=== PATIENT | male | born 1970 | race Caucasian/White ===

== ENCOUNTER 2017-06-27 11:28 | Inpatient (IN) | payer OTHER ==
[2017-06-27 12:48] VITALS: BMI 31.8
--- NOTE | 2017-06-27 13:49 | HP ---
COWS - Scale Resting Pulse: 1= [place] 81-100 Sweatin=Flushed/Facial Moisture Restless Observation: 3= Extraneous Movement Pupil Size: 2= Moderately Dilated Bone or Joint Aches: 2= Severe Diffuse Aches Runny Nose/ Eye Tearin= Runny Nose/Eyes GI Upset > 30mins: 3= Vomiting/Diarrhea Tremor Observation: 2= Slight Tremor Visible Yawning Observation: 2= >3x During Session Anxiety or Irritability: 2=Irritable/Anxious Goose Flesh Skin: 0=Smooth Skin COWS Score: 21 CIWA Score - CIWA Score Nausea/Vomitin Muscle Tremors: 3 Anxiety: 3 Agitation: 3 Paroxysmal Sweats: 2 Orientation: 0-Oriented Tacttile Disturbances: 2-Mild Itch/Numbness/Burn Auditory Disturbances: 2-Mild Harshness/Frighten Visual Disturbances: 2-Mild Sensitivity Headache: 1-Very Mild CIWA-Ar Total Score: 21 Admission ROS BHS - HPI Chief Complaint: i need help to stop using heroin and alcohol Allergies/Adverse Reactions: Allergies Allergy/AdvReac Type Severity Reaction Status Date / Time No Known Allergies Allergy Verified 06/27/17 12:59 History of Present Illness: this 47 years old male with heroin and alcohol dependence,seeking detox,last treatment [facility] 03/05 multiple admissions in the past but relapsing multiple medical problem hiv since 2014,hepatitis c treated,nicotine dependence, schizoaffective disorder,weight loss, abscess of both forearm no significant period of sobriety - Ebola screening Have you traveled outside of the country in the last 21 days: No Have you had contact with anyone from an Ebola affected area: No Have you been sick,other than usual withdrawal symptoms: No Do you have a fever: No - Review of Systems Constitutional: Chills, Loss of Appetite, Malaise, Night Sweats, Changes in sleep, Weakness, Unintentional Wgt. Loss EENT: reports: Tearing, Nose Congestion Respiratory: reports: No Symptoms reported Cardiac: reports: Palpitations GI: reports: Diarrhea, Nausea, Vomiting, Abdominal cramping : reports: No Symptoms Reported Integumentary: reports: Dryness, Erythema Neuro: reports: Headache, Tremors Endocrine: reports: No Symptoms Reported Hematology: reports: No Symptoms Reported, Other (hiv) Psychiatric: reports: No Sypmtoms Reported, Judgement Intact, Mood/Affect Appropiate, Orientated x3 (schizoaffetive disorder), Anxious, Depressed Patient History - Patient Medical History Hx Anemia: No Hx Asthma: No Hx Chronic Obstructive Pulmonary Disease (COPD): No Hx Cancer: No Hx Cardiac Disorders: No Hx Congestive Heart Failure: No Hx Hypertension: Yes Hx Hypercholesterolemia: No Hx Pacemaker: No HX Cerebrovascular Accident: No Hx Seizures: No Hx Dementia: No Hx Diabetes: No Hx Gastrointestinal Disorders: No Hx Liver Disease: Yes (LIVER CIRRHOSIS ON BIOPSY) Hx Genitourinary Disorders: No Hx Sexually Transmitted Disorders: No Hx Renal Disease (ESRD): No Hx Thyroid Disease: No Hx Human Immunodeficiency Virus (HIV): No (positive since 2014) Hx Hepatitis C: Yes (treated) Hx Depression: No Hx Suicide Attempt: No Hx Bipolar Disorder: Yes Hx Schizophrenia: Yes (schizoeffective) Other Medical History: no suicidal,no homicidal - Patient Surgical History Past Surgical History: Yes Hx Neurologic Surgery: No Hx Cataract Extraction: No Hx Cardiac Surgery: No Hx Lung Surgery: No Hx Breast Surgery: No Hx Breast Biopsy: No Hx Abdominal Surgery: No Hx Appendectomy: No Hx Cholecystectomy: No Hx Genitourinary Surgery: No Hx Section: No Hx Orthopedic Surgery: No Other Surgical History: bilateral inguinal hernia repair in 2012 Anesthesia Reaction: No - PPD History Previous Implant?: Yes Documented Results: Positive w/o proof Implanted On Prior R Admission?: No PPD to be Administered?: No - Smoking Cessation Smoking history: Current every day smoker Have you smoked in the past 12 months: Yes Aproximately how many cigarettes per day: 15 Cigars Per Day: 0 Hx Chewing Tobacco Use: No Initiated information on smoking cessation: Yes 'Breaking Loose' booklet given: 06/27/17 - Substance & Tx. History Hx Alcohol Use: Yes Hx Substance Use: Yes Substance Use Type: Alcohol, Cocaine, Heroin - Substances Abused Heroin Route: Injection Frequency: Daily Amount used: 20 bags Age of first use: 9 Date of Last Use: 06/27/17 Cocaine Route: Injection Frequency: Daily Amount used: 15 bags Age of first use: 9 Date of Last Use: 06/27/17 Alcohol Route: Oral Frequency: Daily Amount used: vodka(2 pints) Age of first use: 8 Date of Last Use: 06/27/17 Family Disease History - Family Disease History Family History: Denies Admission Physical Exam [facility] - Vital Signs Vital Signs: Vital Signs - 24 hr 06/27/17 12:44 Temperature 96.8 F L Pulse Rate 81 Respiratory 20 Rate Blood Pressure 126/70 - Physical General Appearance: Yes: Moderate Distress, Tremorous, Irritable, Sweating, Anxious HEENTM: Yes: Normal ENT Inspection, ADITI, Pharynx Normal, Nasal Congestion Respiratory: Yes: Lungs Clear, Normal Breath Sounds, No Respiratory Distress Neck: Yes: Within Normal Limits, Supple, Trachea in good position Breast: Yes: Within Normal Limits Cardiology: Yes: Within Normal Limits, Regular Rhythm, Regular Rate, S1, S2 Abdominal: Yes: Within Normal Limits, Normal Bowel Sounds, Non Tender, Flat, Soft Genitourinary: Yes: Within Normal Limits Back: Yes: Muscle Spasm Musculoskeletal: Yes: full range of Motion, Back pain, Muscle Pain Extremities: Yes: Tremors, Inflammation (multiple area of erythema both forearm abscess of left forearm) Integumentary: Yes: Dry Lymphatic: Yes: Within Normal Limits - Diagnostic (1) Opioid dependence with withdrawal Current Visit: Yes Status: Acute (2) Alcohol dependence with uncomplicated withdrawal Current Visit: Yes Status: Acute (3) Cellulitis and abscess Current Visit: Yes Status: Acute (4) Cocaine dependence Current Visit: Yes Status: Acute Qualifiers: Substance use status: uncomplicated Qualified Code(s): F14.20 - Cocaine dependence, uncomplicated (5) Nicotine dependence Current Visit: Yes Status: Acute Qualifiers: Nicotine product type: cigarettes Substance use status: uncomplicated Qualified Code(s): F17.210 - Nicotine dependence, cigarettes, uncomplicated (6) Hepatitis C Current Visit: Yes Status: Chronic (7) Hypertension Current Visit: Yes Status: Chronic Qualifiers: Hypertension type: essential hypertension Qualified Code(s): I10 - Essential (primary) hypertension (8) Schizoaffective disorder Current Visit: No Status: Suspected Qualifiers: Schizoaffective disorder type: unspecified Qualified Code(s): F25.9 - Schizoaffective disorder, unspecified (9) Weight loss Current Visit: Yes Status: Acute Cleared for Admission [facility] - Detox or Rehab [facility] Level of Care: Medically Managed Detox Regimen/Protocol: Methadone/Librium [facility] Breath Alcohol Content Breath Alcohol Content: 0.008 Urine Drug Screen - Results Drug Screen Negative: No Urine Drug Screen Results: SHARAN-Cocaine, OPI-Opiates, MET-Methamphetamine, BZO- Benzodiazepines
[2017-06-27] MEDS ORDERED: chlordiazePOXIDE HCL 25 MG CAPSULE PO PRN (13:57)
[2017-06-27] MEDS ORDERED: MAGNESIUM CITRATE 300 ML BOTTLE PO PRN (13:58)
[2017-06-27] MEDS ORDERED: ACETAMINOPHEN 325 MG TABLET (FP) PO PRN (13:58)
[2017-06-27] MEDS ORDERED: MENTHOL/PHENOL 1 EACH UD MM PRN (13:58)
[2017-06-27] MEDS ORDERED: IBUPROFEN 400 MG TABLET (FP) PO PRN (13:58)
[2017-06-27] MEDS ORDERED: MAGNESIUM HYDROX 2400MG/30ML ORAL SUSPENSION 30 ML CUP PO PRN (13:58)
[2017-06-27] MEDS ORDERED: NICOTINE POLACRILEX 2 MG GUM BUC PRN (13:58)
[2017-06-27] MEDS ORDERED: hydrOXYzine PAMOATE 25 MG CAPSULE (FP) PO PRN (13:58)
[2017-06-27] MEDS ORDERED: P-EPHED 60MG/TRIPROLIDI 2.5MG TABLET PO PRN (13:58)
[2017-06-27] MEDS ORDERED: guaiFENesin/D-METHORPHAN HB 10 ML UNIT-DOSE CUPS PO PRN (13:58)
[2017-06-27] MEDS ORDERED: diphenhydrAMINE HCL 50 MG CAPSULE PO PRN (13:58)
[2017-06-27] MEDS ORDERED: MAG HYDROX/AL HYDROX/SIMETH 30 ML UNIT-DOSE CUP PO PRN (13:58)
[2017-06-27] MEDS ORDERED: LOPERAMIDE HCL 2 MG CAPSULE PO PRN (13:58)
[2017-06-27] MEDS ORDERED: CYCLOBENZAPRINE HCL 10 MG TABLET (FP) PO PRN (14:02)
[2017-06-27] MEDS ORDERED: SULFAMETHOXAZOLE/TRIMETHOPRIM 800MG/160MG D.S. TABLET PO ONE (14:04)
[2017-06-27] MEDS ORDERED: METHADONE HCL 10 MG TABLET (FOR DETOX USE ONLY) PO ONE ×2 (14:08→23:00)
[2017-06-27] MEDS: NICOTINE 21 MG/24 HOURS TOPICAL PATCH TD SCH (15:12)
--- NOTE | 2017-06-27 16:55 | CONSULT ---
[facility] Psychiatric Consult - Data Date of interview: 06/27/17 Admission source: [facility] Identifying data: Readmission to [facility] for this 47 y/o male seeking detox treatment on for alcohol and heroin dependence.Patient is single without children,domiciled,unemployed and supported on SSI benefits. Substance Abuse History: Discussed in this session.Mr Chapa confirms this report. Smoking Cessation. Smoking history: Current every day smoker. Have you smoked in the past 12 months: Yes. Aproximately how many cigarettes per day : 15. Cigars Per Day: 0. Hx Chewing Tobacco Use: No. Initiated information on smoking cessation: Yes. 'Breaking Loose' booklet given: 06/27/17. - Substance & Tx. History. Hx Alcohol Use: Yes. Hx Substance Use: Yes. Substance Use Type: Alcohol, Cocaine, Heroin. - Substances Abused. Heroin. Route: Injection. Frequency: Daily. Amount used: 20 bags. Age of first use : 9. Date of Last Use: 06/27/17. Cocaine. Route: Injection. Frequency: Daily. Amount used: 15 bags. Age of first use: 9. Date of Last Use: . Alcohol. Route: Oral. Frequency: Daily. Amount used: vodka(2 pints). Age of first use: 8. Date of Last Use: 06/27/17 Medical History: HIV infection since 2014,abcess (both forearms),hepatitis C, hypertension,cirrhosis of liver and a history of bilateral inguinal herniorraphy (2012). Psychiatric History: History of 3-5 psychiatric hospitalizations (during incarceration).Released from state correction in 2007.Currently the patient is monitored under the TACS program.He sees a psychiatrist at the [facility] mental health clinic in the [place].Maintained on a regimen of abilify 15 mg/day + seroquel 100 mg/hs + ambien 10 mg/hs (self-report).Mr Chapa is currently followed at [facility] mental health clinic in the [place].Diagnosed with Schizoaffective Disorder.Patient denies history of suicide attempts. Physical/Sexual Abuse/Trauma History: Patient denies. Additional Comment: Urine Drug Screen Results: SHARAN-Cocaine, OPI-Opiates, MET- Methamphetamine, BZO-Benzodiazepines.Noted. Mental Status Exam - Mental Status Exam Alert and Oriented to: Time, Place Cognitive Function: Good Patient Appearance: Well Groomed Mood: Hopeful, Euthymic Affect: Appropriate, Normal Range Patient Behavior: Fatigued, Appropriate, Cooperative Speech Pattern: Clear Voice Loudness: Normal Thought Process: Goal Oriented Thought Disorder: Not Present Hallucinations: Denies Suicidal Ideation: Denies Homicidal Ideation: Denies Insight/Judgement: Poor Sleep: Poorly, Difficulty falling asleep Appetite: Good Muscle strength/Tone: Normal Gait/Station: Normal Psychiatric Findings - Problem List ([place] 1, 2,3) (1) Alcohol dependence with uncomplicated withdrawal Current Visit: Yes Status: Acute (2) Opioid dependence with withdrawal Current Visit: Yes Status: Acute (3) Opioid dependence on agonist therapy Current Visit: Yes Status: Acute (4) Cocaine dependence Current Visit: Yes Status: Acute Qualifiers: Substance use status: uncomplicated Qualified Code(s): F14.20 - Cocaine dependence, uncomplicated (5) Nicotine dependence Current Visit: Yes Status: Acute Qualifiers: Nicotine product type: cigarettes Substance use status: uncomplicated Qualified Code(s): F17.210 - Nicotine dependence, cigarettes, uncomplicated (6) Schizoaffective disorder, bipolar type Current Visit: Yes Status: Chronic (7) Cellulitis and abscess Current Visit: Yes Status: Acute (8) Hepatitis C Current Visit: Yes Status: Chronic (9) Hypertension Current Visit: Yes Status: Chronic Qualifiers: Hypertension type: essential hypertension Qualified Code(s): I10 - Essential (primary) hypertension (10) Insomnia Current Visit: Yes Status: Acute - Initial Treatment Plan Initial Treatment Plan: Psychoeducation.Detoxification.Medivcations : abilify 15 mg po hs + ambien 10 mg po hs prn + seroquel 100 mg po hs.Side effects/ benefits discussed with the patient.He is in agreement with this careplan.Observation.Medications are verified through survey of recent pharmacy claims (filled scripts on 06/21/17 at [facility]).Noted script for lamotrigine 150 mg/day (patient declines to resume this drug during this hospitalization).
[2017-06-27 17:08] LABS: URINE APPEARANCE TURBID; URINE BILIRUBIN NEGATIVE (NEGATIVE); URINE BLOOD 1+ (NEGATIVE); URINE COLOR DKYELLOW; URINE GLUCOSE (UA) NEGATIVE (NEGATIVE); URINE KETONE NEGATIVE (NEGATIVE); URINE LEUK ESTERASE NEGATIVE (NEGATIVE); URINE NITRITE NEGATIVE (NEGATIVE); URINE UROBILINOGEN 4.0 E.U/dl mg/dL (0.2-1.0)
[2017-06-27] MEDS: chlordiazePOXIDE HCL 25 MG CAPSULE PO SCH ×2 (17:22→22:13)
[2017-06-27 17:58] LABS: URINE PROTEIN 1+ (NEGATIVE)
[2017-06-27 18:50] LABS: URINE MUCUS RARE; URINE RBC 2 /hpf (0-3)
[2017-06-27] MEDS: ZOLPIDEM TARTRATE 10 MG TABLET (PARK CARE ONLY) PO PRN (22:13)
[2017-06-27] MEDS: QUEtiapine FUMARATE 100 MG TABLET (FP) PO SCH (22:13)
[2017-06-27] MEDS: SULFAMETHOXAZOLE/TRIMETHOPRIM 800MG/160MG D.S. TABLET PO SCH (22:13)
[2017-06-27] MEDS: cloNIDine HCL 0.1 MG TABLET PO SCH (22:13)
[2017-06-27] MEDS: THIAMINE HCL 100 MG TABLET (FP) PO SCH (22:13)
[2017-06-28] MEDS: chlordiazePOXIDE HCL 25 MG CAPSULE PO SCH ×4 (05:52→22:11)
[2017-06-28] MEDS ORDERED: METHADONE HCL 10 MG TABLET (FOR DETOX USE ONLY) PO SCH (10:00)
--- NOTE | 2017-06-28 10:06 | PN ---
S CIWA - CIWA Score Nausea/Vomitin-No Nausea/No Vomiting Muscle Tremors: 3 Anxiety: 4-Mod. Anxious/Guarded Agitation: 3 Paroxysmal Sweats: 3 Orientation: 0-Oriented Tacttile Disturbances: 0-None Auditory Disturbances: 0-None Visual Disturbances: 0-None Headache: 0-None Present CIWA-Ar Total Score: 13 BHS Progress Note (SOAP) Subjective: Sweating,interrupted sleep,restless,tremors,anxiety. Objective: 06/28/17 10:05 Vital Signs - 8 hr 06/28/17 06/28/17 06/28/17 04:16 06:38 09:32 Temperature 97.6 F 97.5 F L Pulse Rate 73 73 Respiratory 18 18 18 Rate Blood Pressure 132/81 122/83 Laboratory Last Values Urine Color Dkyellow 06/27/17 15:00 Urine Appearance Turbid 06/27/17 15:00 Urine pH 5.0 (5.0-8.0) D 06/27/17 15:00 Ur Specific [place] >= 1.030 (1.005-1.025) H 06/27/17 15:00 Urine Protein 1+ (NEGATIVE) H 06/27/17 15:00 Urine Glucose (UA) Negative (NEGATIVE) 06/27/17 15:00 Urine Ketones Negative (NEGATIVE) 06/27/17 15:00 Urine Blood 1+ (NEGATIVE) H 06/27/17 15:00 Urine Nitrite Negative (NEGATIVE) 06/27/17 15:00 Urine Bilirubin Negative (NEGATIVE) 06/27/17 15:00 Urine Urobilinogen 4.0 e.u/dl mg/dL (0.2-1.0) 06/27/17 15:00 Ur Leukocyte Esterase Negative (NEGATIVE) 06/27/17 15:00 Urine RBC 2 /hpf (0-3) 06/27/17 15:00 Urine WBC None /hpf (3-5) 06/27/17 15:00 Urine Mucus Rare 06/27/17 15:00 Assessment: 06/28/17 10:05 Withdrawal sx. Plan: Continue detox
[2017-06-28 10:07] LABS: MCH 29.8 pg (25.7-33.7); MCHC 32.6 g/dl (32.0-35.9); MEAN CELL VOLUME 91.3 fl (80-96); MEAN PLT VOLUME 8.1 fl (7.5-11.1); PLATELET COUNT 395 K/MM3 (134-434); RDW 13.8 % (11.9-15.9); WHITE BLOOD COUNT 8.5 K/mm3 (4.0-10.0)
[2017-06-28] MEDS: SULFAMETHOXAZOLE/TRIMETHOPRIM 800MG/160MG D.S. TABLET PO SCH ×2 (10:08→22:11)
[2017-06-28] MEDS: cloNIDine HCL 0.1 MG TABLET PO SCH ×2 (10:08→22:11)
[2017-06-28] MEDS: PRENATAL VITAMINS W/ FOLIC ACID TABLET (FP) PO SCH (10:08)
[2017-06-28] MEDS: ARIPiprazole 15 MG TABLET PO SCH (10:10)
[2017-06-28] MEDS: NICOTINE 21 MG/24 HOURS TOPICAL PATCH TD SCH (10:10)
[2017-06-28 10:11] LABS: ANION GAP 5 (8-16); CALCIUM 9.2 mg/dL (8.5-10.1); CO2 30 mmol/L (21-32)
[2017-06-28 10:17] LABS: ALBUMIN 3.3 g/dl (3.4-5.0); ALK PHOS 81 U/L (45-117); BILIRUBIN,TOTAL 0.7 mg/dL (0.2-1.0); CREATININE 0.8 mg/dL (0.7-1.3); GLUCOSE,RANDOM 117 mg/dL (74-106); SGOT/AST 19 U/L (15-37); SGPT/ALT 23 U/L (12-78); TOT PROT 8.3 g/dl (6.4-8.2)
--- NOTE | 2017-06-28 15:39 | EKG ---
Test Reason : Blood Pressure : / mmHG Vent. Rate : 076 BPM Atrial Rate : 076 BPM P-R Int : 134 ms QRS Dur : 090 ms QT Int : 396 ms P-R-T Axes : 058 047 021 degrees QTc Int : 445 ms NORMAL SINUS RHYTHM NORMAL ECG NO PREVIOUS ECGS AVAILABLE Confirmed by JACOB DREW MD ([id number]) on 06/28/2017 3:38:47 PM Referred By: Confirmed By:JACOB DREW MD
[2017-06-28] MEDS: QUEtiapine FUMARATE 100 MG TABLET (FP) PO SCH (22:11)
[2017-06-28] MEDS: THIAMINE HCL 100 MG TABLET (FP) PO SCH (22:11)
[2017-06-28] MEDS: ZOLPIDEM TARTRATE 10 MG TABLET (PARK CARE ONLY) PO PRN (22:11)
[2017-06-29] MEDS: chlordiazePOXIDE HCL 25 MG CAPSULE PO SCH ×2 (05:39→10:16)
[2017-06-29] MEDS: cloNIDine HCL 0.1 MG TABLET PO SCH ×2 (10:16→22:07)
[2017-06-29] MEDS: SULFAMETHOXAZOLE/TRIMETHOPRIM 800MG/160MG D.S. TABLET PO SCH ×2 (10:16→22:07)
[2017-06-29] MEDS: METHADONE HCL 5 MG TABLET (FOR DETOX USE ONLY) PO SCH (10:16)
[2017-06-29] MEDS: PRENATAL VITAMINS W/ FOLIC ACID TABLET (FP) PO SCH (10:16)
[2017-06-29] MEDS: ARIPiprazole 15 MG TABLET PO SCH (10:16)
[2017-06-29] MEDS: NICOTINE 21 MG/24 HOURS TOPICAL PATCH TD SCH (10:18)
--- NOTE | 2017-06-29 11:04 | PN ---
[facility] CIWA - CIWA Score Nausea/Vomitin-Int. Nausea w/Dry Heave Muscle Tremors: 2 Anxiety: 4-Mod. Anxious/Guarded Agitation: 3 Paroxysmal Sweats: 3 Orientation: 0-Oriented Tacttile Disturbances: 2-Mild Itch/Numbness/Burn Auditory Disturbances: 2-Mild Harshness/Frighten Visual Disturbances: 0-None Headache: 0-None Present CIWA-Ar Total Score: 20 BHS COWS - Scale Resting Pulse: 1= [place] 81-100 Sweatin= Chills/Flushing Restless Observation: 1= Difficult to Sit Still Pupil Size: 1= Pupils >than Normal Bone or Joint Aches: 1= Mild Discomfort Runny Nose/ Eye Tearin= Runny Nose/Eyes GI Upset > 30mins: 2= Nausea/Diarrhea Tremor Observation of Outstretched Hands: 1= Tremor [place], Not Seen Yawning Observation: 1= 1-2x During Session Anxiety or Irritability: 1=Feels Anxious/Irritable Goose Flesh Skin: 3=Piloerection COWS Score: 15 [facility] Progress Note (SOAP) Subjective: Sweating, Nausea. Objective: PT. A & O X 3, OBSERVED AMBULATING ON UNIT. NO ACUTE DISTRESS. PT. DENIES CHEST PAIN. 06/29/17 11:02 Vital Signs Temperature 97.7 F 06/29/17 10:38 Pulse Rate 83 06/29/17 10:38 Respiratory Rate 18 06/29/17 10:38 Blood Pressure 110/74 06/29/17 10:38 O2 Sat by Pulse Oximetry (%) Laboratory Tests 06/27/17 06/28/17 06/28/17 15:00 06:00 06:00 WBC 8.5 RBC 4.42 Hgb 13.2 D Hct 40.3 MCV 91.3 MCH 29.8 MCHC 32.6 RDW 13.8 Plt Count 395 D MPV 8.1 Sodium 134 L Potassium 4.3 Chloride 99 Carbon Dioxide 30 Anion Gap 5 L BUN 17 Creatinine 0.8 Creat Clearance w eGFR > 60 Random Glucose 117 H Calcium 9.2 Total Bilirubin 0.7 D AST 19 D ALT 23 D Alkaline Phosphatase 81 Total Protein 8.3 H Albumin 3.3 L D Urine Color Dkyellow Urine Appearance Turbid Urine pH 5.0 D Ur Specific [place] >= 1.030 H Urine Protein 1+ H Urine Glucose (UA) Negative Urine Ketones Negative Urine Blood 1+ H Urine Nitrite Negative Urine Bilirubin Negative Urine Urobilinogen 4.0 e.u/dl Ur Leukocyte Esterase Negative Urine RBC 2 Urine WBC None Urine Mucus Rare RPR Titer 06/28/17 06:00 WBC RBC Hgb Hct MCV MCH MCHC RDW Plt Count MPV Sodium Potassium Chloride Carbon Dioxide Anion Gap BUN Creatinine Creat Clearance w eGFR Random Glucose Calcium Total Bilirubin AST ALT Alkaline Phosphatase Total Protein Albumin Urine Color Urine Appearance Urine pH Ur Specific [place] Urine Protein Urine Glucose (UA) Urine Ketones Urine Blood Urine Nitrite Urine Bilirubin Urine Urobilinogen Ur Leukocyte Esterase Urine RBC Urine WBC Urine Mucus RPR Titer Nonreactive LABS NOTED. Assessment: 06/29/17 11:02 WITHDRAWAL SYMPTOMS. Plan: CONTINUE DETOX.
[2017-06-29] MEDS: chlordiazePOXIDE 5 MG CAPSULE PO SCH ×2 (16:46→22:07)
[2017-06-29] MEDS: ZOLPIDEM TARTRATE 10 MG TABLET (PARK CARE ONLY) PO PRN (22:07)
[2017-06-29] MEDS: THIAMINE HCL 100 MG TABLET (FP) PO SCH (22:07)
[2017-06-29] MEDS: QUEtiapine FUMARATE 100 MG TABLET (FP) PO SCH (22:07)
[2017-06-30] MEDS: chlordiazePOXIDE 5 MG CAPSULE PO SCH ×2 (05:38→10:09)
[2017-06-30] MEDS: cloNIDine HCL 0.1 MG TABLET PO SCH (10:08)
[2017-06-30] MEDS: SULFAMETHOXAZOLE/TRIMETHOPRIM 800MG/160MG D.S. TABLET PO SCH (10:08)
[2017-06-30] MEDS: PRENATAL VITAMINS W/ FOLIC ACID TABLET (FP) PO SCH (10:08)
[2017-06-30] MEDS: ARIPiprazole 15 MG TABLET PO SCH (10:09)
[2017-06-30] MEDS: METHADONE HCL 5 MG TABLET (FOR DETOX USE ONLY) PO SCH (10:09)
[2017-06-30] MEDS: NICOTINE 21 MG/24 HOURS TOPICAL PATCH TD SCH (10:12)
--- NOTE | 2017-06-30 14:28 | PN ---
[facility] Progress Note (SOAP) Subjective: Fatigue. Objective: PT. A & O X 3. NO ACUTE DISTRESS. 06/30/17 14:27 Vital Signs Temperature 96.7 F L 06/30/17 09:12 Pulse Rate 78 06/30/17 13:51 Respiratory Rate 18 06/30/17 13:51 Blood Pressure 109/69 06/30/17 13:51 O2 Sat by Pulse Oximetry (%) Laboratory Tests 06/27/17 06/28/17 06/28/17 15:00 06:00 06:00 WBC 8.5 RBC 4.42 Hgb 13.2 D Hct 40.3 MCV 91.3 MCH 29.8 MCHC 32.6 RDW 13.8 Plt Count 395 D MPV 8.1 Sodium 134 L Potassium 4.3 Chloride 99 Carbon Dioxide 30 Anion Gap 5 L BUN 17 Creatinine 0.8 Creat Clearance w eGFR > 60 Random Glucose 117 H Calcium 9.2 Total Bilirubin 0.7 D AST 19 D ALT 23 D Alkaline Phosphatase 81 Total Protein 8.3 H Albumin 3.3 L D Urine Color Dkyellow Urine Appearance Turbid Urine pH 5.0 D Ur Specific [place] >= 1.030 H Urine Protein 1+ H Urine Glucose (UA) Negative Urine Ketones Negative Urine Blood 1+ H Urine Nitrite Negative Urine Bilirubin Negative Urine Urobilinogen 4.0 e.u/dl Ur Leukocyte Esterase Negative Urine RBC 2 Urine WBC None Urine Mucus Rare RPR Titer 06/28/17 06:00 WBC RBC Hgb Hct MCV MCH MCHC RDW Plt Count MPV Sodium Potassium Chloride Carbon Dioxide Anion Gap BUN Creatinine Creat Clearance w eGFR Random Glucose Calcium Total Bilirubin AST ALT Alkaline Phosphatase Total Protein Albumin Urine Color Urine Appearance Urine pH Ur Specific [place] Urine Protein Urine Glucose (UA) Urine Ketones Urine Blood Urine Nitrite Urine Bilirubin Urine Urobilinogen Ur Leukocyte Esterase Urine RBC Urine WBC Urine Mucus RPR Titer Nonreactive LABS NOTED. Assessment: 06/30/17 14:27 WITHDRAWAL SYMPTOMS. Plan: CONTINUE DETOX.
[2017-06-30] MEDS ORDERED: chlordiazePOXIDE HCL 10 MG CAPSULE PO SCH (17:00)
[2017-06-30 17:36] VITALS: BP 99/61; PULSE 63; TEMP 97.9
[2017-07-01] MEDS ORDERED: METHADONE HCL 10 MG TABLET (FOR DETOX USE ONLY) PO SCH (10:00)
[2017-07-02] MEDS ORDERED: METHADONE HCL 5 MG TABLET (FOR DETOX USE ONLY) PO SCH (06:00)
== END 2017-06-30 07:50 | disposition left against medical advice (07) | DRG 770 ==
LOC: YASAS 11:28 → Y3N 13:48
PROVIDERS: ADMIT Internal Medicine; ATTEND Internal Medicine
PROC: HZ2ZZZZ Detoxification Services for Substance Abuse Treatment (ICD-10-PCS; principal; 2017-06-27)
DX: F11.23 Opioid dependence with withdrawal (principal); F10.230 Alcohol dependence with withdrawal, uncomplicated; F14.20 Cocaine dependence, uncomplicated; F17.210 Nicotine dependence, cigarettes, uncomplicated; F25.0 Schizoaffective disorder, bipolar type; B18.2 Chronic viral hepatitis C; I10 Essential (primary) hypertension; G47.00 Insomnia, unspecified; Z21 Asymptomatic human immunodeficiency virus [HIV] infection status; K74.60 Unspecified cirrhosis of liver; L03.114 Cellulitis of left upper limb; L03.113 Cellulitis of right upper limb; L02.414 Cutaneous abscess of left upper limb; L02.413 Cutaneous abscess of right upper limb; Z87.898 Personal history of other specified conditions
CPT/HCPCS: 36415; 71010-TC; 80053; 81003; 81015; 85027; 86593; 93005; 93010

== ENCOUNTER 2019-06-19 12:50 | Inpatient (IN) | payer OTHER ==
--- NOTE | 2019-06-19 15:15 | HP ---
COWS - Scale Resting Pulse: 0= [place] 80 or Below Sweatin= No chills or Flushing Restless Observation: 3= Extraneous Movement Pupil Size: 0= Normal to Room Light Bone or Joint Aches: 2= Severe Diffuse Aches Runny Nose/ Eye Tearin= Runny Nose/Eyes GI Upset > 30mins: 0= None Tremor Observation: 2= Slight Tremor Visible Yawning Observation: 2= >3x During Session Anxiety or Irritability: 2=Irritable/Anxious Goose Flesh Skin: 0=Smooth Skin COWS Score: 13 CIWA Score Nausea/Vomitin-Mild Nausea/No Vomiting Muscle Tremors: 1-None Visible, but [place] Anxiety: 2 Agitation: 1-Slight > Activity Paroxysmal Sweats: 2 Orientation: 0-Oriented Tacttile Disturbances: 1-Very Mild Itch/Numbness Auditory Disturbances: 1-Very Mild Visual Disturbances: 1-Very Mild Sensitivity Headache: 3-Moderate CIWA-Ar Total Score: 13 - Admission Criteria OASAS Guidelines: Admission for Medically Managed Detox: Requires at least one of the followin. CIWA greater than 12 2. Seizures within the past 24 hours 3. Delirium tremens within the past 24 hours 4. Hallucinations within the past 24 hours 5. Acute intervention needed for co occurring medical disorder 6. Acute intervention needed for co occurring psychiatric disorder 7. Severe withdrawal that cannot be handled at a lower level of care (continued vomiting, continued diarrhea, abnormal vital signs) requiring intravenous medication and/or fluids 8. Admission [facility] Chief Complaint: detox from alcohol Allergies/Adverse Reactions: Allergies Allergy/AdvReac Type Severity Reaction Status Date / Time No Known Allergies Allergy Verified 06/19/19 14:01 History of Present Illness: 49 y/o M with PMH HIV (cd4 550, VL undetectable), hep c (tx), cirrhosis, schizoaffective, paranoia, depression, HTN, who presents for detox for alcohol. also with heroin use. Per pt, he last drank today 3 beers worth x 40 oz each. Drinks 5-6 beers x 40 oz each daily. No history of alcohol withdrawal sz, but has had blackouts. Denies falls. Last used heroin today as well, 14 bags worth, +IVDA. injects into UE b/l. Has had abscesses previously, tx with abx and hx of endocarditis. States that he is in a suboxone program in [place] at [facility] ([phone]). Has been there for 1 yr and is on a dose of 20mg SL film - dose of . Ran out 4 days ago. Used to be in a methadone program previously on [address] [place] [address], however did not like it. Pt also w hx of murder. Was in [facility] for 20 yrs. [facility]- was called. Stated that he was dosed last at [facility] [phone] ext [phone] [address] with [facility], does not have any record of patient. was last at detox here pw 2017 has been in rehab 2015, with multiple other visits PMH: as above PsxH: R inguinal hernia repair , back sx - infection ? discitis meds: biktarvy, seroquel, abilify, lamictal, ambien, clonidine allergies: NKDA FH: denies SH: was in [facility] for 20 yrs d/t murder. states he lives w a friend. smokes 8 cigs /day x 40 yrs also uses cocaine - 5 bags/day via IVDA. does speedball Exam Limitations: No Limitations - Ebola screening Have you traveled outside of the country in the last 21 days: No Have you had contact with anyone from an Ebola affected area: No Have you been sick,other than usual withdrawal symptoms: No Do you have a fever: No - Review of Systems Constitutional: Diaphoresis, Unintentional Wgt. Loss EENT: reports: Nose Congestion Respiratory: reports: No Symptoms reported Cardiac: reports: No Symptoms Reported GI: reports: No Symptoms Reported : reports: No Symptoms Reported Musculoskeletal: reports: Back Pain, Muscle Pain Integumentary: reports: No Symptoms Reported Neuro: reports: No Symptoms reported Endocrine: reports: No Symptoms Reported Hematology: reports: No Symptoms Reported Psychiatric: reports: Orientated x3 Patient History - Patient Medical History Hx Anemia: No Hx Asthma: No Hx Chronic Obstructive Pulmonary Disease (COPD): No Hx Cancer: No Hx Cardiac Disorders: No Hx Congestive Heart Failure: No Hx Hypertension: Yes (clonidine) Hx Hypercholesterolemia: No Hx Pacemaker: No HX Cerebrovascular Accident: No Hx Seizures: No Hx Dementia: No Hx Diabetes: No Hx Gastrointestinal Disorders: No Hx Liver Disease: Yes (LIVER CIRRHOSIS ON BIOPSY) Hx Genitourinary Disorders: No Hx Sexually Transmitted Disorders: No Hx Renal Disease (ESRD): No Hx Thyroid Disease: No Hx Human Immunodeficiency Virus (HIV): No (positive since 2014) Hx Hepatitis C: Yes (treated) Hx Depression: No Hx Suicide Attempt: No Hx Bipolar Disorder: Yes Hx Schizophrenia: Yes (schizoeffective) - Patient Surgical History Past Surgical History: Yes Hx Neurologic Surgery: No Hx Cataract Extraction: No Hx Cardiac Surgery: No Hx Lung Surgery: No Hx Breast Surgery: No Hx Breast Biopsy: No Hx Abdominal Surgery: No Hx Appendectomy: No Hx Cholecystectomy: No Hx Genitourinary Surgery: No Hx Section: No Hx Orthopedic Surgery: No Other Surgical History: bilateral inguinal hernia repair in 2012 Anesthesia Reaction: No - PPD History Documented Results: Positive w/o proof PPD to be Administered?: No - Smoking Cessation Smoking history: Current every day smoker Have you smoked in the past 12 months: Yes Aproximately how many cigarettes per day: 15 Cigars Per Day: 0 Hx Chewing Tobacco Use: No Initiated information on smoking cessation: Yes 'Breaking Loose' booklet given: 06/19/19 - Substance & Tx. History Hx Alcohol Use: Yes Substance Use Type: Alcohol, Cocaine, Heroin Hx Substance Use Treatment: [facility]) - Substances abused Alcohol Substance route: Oral Frequency: Daily Amount used: 5-6 beers Age of first use: 9 Date of last use: 06/19/19 Heroin Substance route: Injection Frequency: Daily Amount used: 14 bags Age of first use: 9 Date of last use: 06/19/19 Cocaine Substance route: Injection Frequency: Daily Amount used: 5 bags Date of last use: 06/19/19 Family Disease History - Family Disease History Family History: Denies Admission Physical Exam BHS - Vital Signs Vital Signs: Vital Signs - 24 hr 06/19/19 14:08 Temperature 97.6 F Pulse Rate 20 L Respiratory 65 H Rate Blood Pressure 101/69 - Physical General Appearance: Yes: Within Normal Limits, Anxious, Other (+lethargic) HEENTM: Yes: Within Normal Limits Respiratory: Yes: Within Normal Limits Neck: Yes: Within Normal Limits Breast: Yes: Breast Exam Deferred Cardiology: Yes: Regular Rhythm, Regular Rate, S1, S2 Abdominal: Yes: Within Normal Limits Genitourinary: Yes: Within Normal Limits Musculoskeletal: Yes: Within Normal Limits Extremities: Yes: Other (+track arreola, scarring from past abscesses UE, appears infected) Neurological: Yes: hypnotherapist II-XII NML intact Integumentary: Yes: Dry, Warm Lymphatic: Yes: Within Normal Limits - Diagnostic (1) IVDU (intravenous drug user) Current Visit: Yes Status: Chronic (2) Dehydration Current Visit: Yes Status: Chronic (3) Alcohol dependence with uncomplicated withdrawal Current Visit: No Status: Acute (4) Cocaine dependence Current Visit: Yes Status: Chronic Qualifiers: Substance use status: uncomplicated Qualified Code(s): F14.20 - Cocaine dependence, uncomplicated (5) HIV (human immunodeficiency virus infection) Current Visit: Yes Status: Chronic (6) Nicotine dependence Current Visit: No Status: Chronic Qualifiers: Nicotine product type: cigarettes Substance use status: uncomplicated Qualified Code(s): F17.210 - Nicotine dependence, cigarettes, uncomplicated (7) Opioid dependence on agonist therapy Current Visit: Yes Status: Chronic (8) Opioid dependence with withdrawal Current Visit: Yes Status: Acute Cleared for Admission [facility] - Detox or Rehab [facility] Level of Care: Medically Managed Detox Regimen/Protocol: Methadone, Not Applicable (+ativan ) Inpatient Rehab Admission - Rehab Decision to Admit Inpatient rehab admission?: No
[2019-06-19] MEDS ORDERED: LORazepam 1 MG TABLET PO PRN (15:33)
[2019-06-19] MEDS ORDERED: MENTHOL/PHENOL 1 EACH UD MM PRN (15:41)
[2019-06-19] MEDS ORDERED: MAG HYDROX/AL HYDROX/SIMETH 30 ML UNIT-DOSE CUP PO PRN (15:41)
[2019-06-19] MEDS ORDERED: MAGNESIUM HYDROX 2400MG/30ML ORAL SUSPENSION 30 ML CUP PO PRN (15:41)
[2019-06-19] MEDS ORDERED: IBUPROFEN 400 MG TABLET (FP) PO PRN (15:41)
[2019-06-19] MEDS ORDERED: hydrOXYzine PAMOATE 25 MG CAPSULE (FP) PO PRN (15:41)
[2019-06-19] MEDS ORDERED: BISMUTH SUBSALICYLATE 524 MG/30 ML UD PO PRN (15:41)
[2019-06-19] MEDS ORDERED: PATIENT'S OWN MEDICATION (NON-FORMULARY) (Bictegrav/Emtricit/Tenofov Ala 1 EACH) PO SCH (15:45)
[2019-06-19] MEDS ORDERED: cloNIDine HCL 0.1 MG TABLET PO PRN (16:15)
[2019-06-19] MEDS ORDERED: METHADONE HCL 10 MG TABLET (FOR DETOX USE ONLY) PO ONE (16:15)
--- NOTE | 2019-06-19 16:37 | PN ---
Teaching Attending Note Name of Resident: Genet Acharya ATTENDING PHYSICIAN STATEMENT I saw and evaluated the patient. I reviewed the resident's note and discussed the case with the resident. I agree with the resident's findings and plan as documented. SUBJECTIVE: this 49 years old male with heroin dependence and alcohol dependence,hepatitis c treated,hiv, suboxone maintenance unable to verify,schizoaffective disorder OBJECTIVE: withdrawal signs and symptom ASSESSMENT AND PLAN: agreed for inpatient detox,medically managed,methadone and ativan regimen
[2019-06-19] MEDS ORDERED: LORazepam 0.5 MG TABLET ONE (17:31)
[2019-06-19] MEDS: NICOTINE 14 MG/24 HOURS TOPICAL PATCH TD SCH (18:26)
[2019-06-19] MEDS ORDERED: MELATONIN 5 MG TABLETS PO PRN (22:00)
[2019-06-19] MEDS ORDERED: CLINDAMYCIN PHOSPHATE 1% TOPICAL GEL 30 GM TUBE TP SCH ×2 (22:00)
[2019-06-19] MEDS: THIAMINE HCL 100 MG TABLET (FP) PO SCH (23:24)
[2019-06-19] MEDS: LORazepam 2 MG TABLET PO SCH (23:24)
[2019-06-20] MEDS: LORazepam 2 MG TABLET PO SCH ×4 (05:56→22:32)
[2019-06-20 09:52] LABS: HEMATOCRIT 35.3 % (35.4-49); HEMOGLOBIN 11.9 GM/dL (11.7-16.9); MCH 29.9 pg (25.7-33.7); MCHC 33.6 g/dl (32.0-35.9); MEAN CELL VOLUME 88.9 fl (80-96); MEAN PLT VOLUME 7.4 fl (7.5-11.1); RBC 3.97 M/mm3 (4.00-5.60); RDW 13.9 % (11.9-15.9); WHITE BLOOD COUNT 7.1 K/mm3 (4.0-10.0)
--- NOTE | 2019-06-20 09:59 | PN ---
[facility] Progress Note Note: pt states last time he received Biktarvy was at [facility]. pt has no pcp/ID MD to follow up with. Pt was told he will not receive this medication while this detox visit. Pt was advised to make an appt with a doctor near his home after his detox is over. pt in agreement.
[2019-06-20] MEDS ORDERED: PATIENT'S OWN MEDICATION (NON-FORMULARY) (Bictegrav/Emtricit/Tenofov Ala 1 EACH) PO SCH (10:00)
[2019-06-20] MEDS ORDERED: METHADONE HCL 5 MG TABLET (FOR DETOX USE ONLY) PO ONE (10:00)
[2019-06-20 10:13] LABS: PLATELET COUNT 258 K/MM3 (134-434)
[2019-06-20 10:22] LABS: BILIRUBIN,TOTAL 0.7 mg/dL (0.2-1); BLOOD UREA NITROGEN 16.9 mg/dL (7-18); CALCIUM 8.4 mg/dL (8.5-10.1); CREATININE 0.8 mg/dL (0.55-1.3); POTASSIUM 3.8 mmol/L (3.5-5.1); TOT PROT 6.5 g/dl (6.4-8.2)
[2019-06-20] MEDS: PRENATAL VITAMINS W/ FOLIC ACID TABLET (FP) PO SCH (10:46)
[2019-06-20] MEDS: NICOTINE 14 MG/24 HOURS TOPICAL PATCH TD SCH (10:46)
[2019-06-20] MEDS: CLINDAMYCIN PHOSPHATE 1% TOPICAL GEL 30 GM TUBE TP SCH ×2 (11:00→22:34)
--- NOTE | 2019-06-20 11:31 | CONSULT ---
[facility] Psychiatric Consult - Data Date of interview: 06/20/19 Admission source: [facility] Identifying data: Patient is a 49 year old single male, without children, unemployed, domiciled, and is supported by [facility]. This is one of multiple admissions for patient. Patient admitted to for alcohol, cocaine, and opiate dependence. Substance Abuse History: Smoking Cessation. Smoking history: Current every day smoker. Have you smoked in the past 12 months: Yes. Aproximately how many cigarettes per day: 15. Cigars Per Day: 0. Hx Chewing Tobacco Use: No. Initiated information on smoking cessation: Yes. 'Breaking Loose' booklet given : 06/19/19. - Substance & Tx. History. Hx Alcohol Use: Yes. Substance Use Type: Alcohol, Cocaine, Heroin. Hx Substance Use Treatment: Yes ([facility] 2018 detox ). - Substances abused. Alcohol. Substance route: Oral. Frequency: Daily. Amount used: 5-6 beers. Age of first use: 9. Date of last use: . Heroin. Substance route: Injection. Frequency: Daily. Amount used: 14 bags. Age of first use: 9. Date of last use: 06/19/19. Cocaine. Substance route: Injection. Frequency: Daily. Amount used: 5 bags. Date of last use: 06/19/19 Medical History: hypertension, Liver cirrhosis, bilateral inguinal hernia repair in 2012 Psychiatric History: Patient reports history of multiple psychiatric hospitalizations, most recently last week at [facility] after experiencing a panic attack. States he was admitted for four days and was prescribed abilify 15 + Seroquel 100mg. Mr. Chapa reports additional hospitalizations while in long term at [facility]. Reports past history of accepting lamictal. Diagnosis of schizoaffective disorder. Reports past histoy of being followed at [facility] mental health clinic. He denies current outpatient psychiatric care. At present patient denies auditory/visual hallucinations, suicidal/homicidal ideation. Patient denies history of suicide attempt. Physical/Sexual Abuse/Trauma History: denies. Additional Comment: Stated he murdered a safety instruction police officer while incarcerated. Mental Status Exam - Mental Status Exam Alert and Oriented to: Time, Place, Person Cognitive Function: Good Patient Appearance: Well Groomed Mood: Euthymic Affect: Mood Congruent Patient Behavior: Cooperative Speech Pattern: Appropriate Voice Loudness: Normal Thought Process: Goal Oriented Thought Disorder: Not Present Hallucinations: Denies Suicidal Ideation: Denies Homicidal Ideation: Denies Insight/Judgement: Poor Sleep: Fair Appetite: Fair Muscle strength/Tone: Normal Gait/Station: Normal Psychiatric Findings - Problem List ([place] 1, 2,3) (1) Opioid dependence with withdrawal Current Visit: Yes Status: Acute (2) Cocaine dependence Current Visit: Yes Status: Chronic Qualifiers: Substance use status: uncomplicated Qualified Code(s): F14.20 - Cocaine dependence, uncomplicated (3) Opioid dependence on agonist therapy Current Visit: Yes Status: Chronic (4) Alcohol dependence with uncomplicated withdrawal Current Visit: Yes Status: Acute (5) Schizoaffective disorder Current Visit: Yes Status: Chronic Qualifiers: Schizoaffective disorder type: unspecified Qualified Code(s): F25.9 - Schizoaffective disorder, unspecified - Initial Treatment Plan Initial Treatment Plan: Psychoeducation provided. Detoxification in progress. Will order Abilify 15mg HS + Seroquel 100mg HS. Benefits and side effects discussed. Verbal consent given.
--- NOTE | 2019-06-20 13:12 | PN ---
[facility] CIWA - CIWA Score Nausea/Vomitin-No Nausea/No Vomiting Muscle Tremors: 2 Anxiety: 3 Agitation: 2 Paroxysmal Sweats: 2 Orientation: 0-Oriented Tacttile Disturbances: 0-None Auditory Disturbances: 0-None Visual Disturbances: 0-None Headache: 1-Very Mild CIWA-Ar Total Score: 10 BHS COWS - Scale Resting Pulse: 1= [place] 81-100 Sweatin= Chills/Flushing Restless Observation: 1= Difficult to Sit Still Pupil Size: 0= Normal to Room Light Bone or Joint Aches: 2= Severe Diffuse Aches Runny Nose/ Eye Tearin= Runny Nose/Eyes GI Upset > 30mins: 0= None Tremor Observation of Outstretched Hands: 1= Tremor [place], Not Seen Yawning Observation: 1= 1-2x During Session Anxiety or Irritability: 1=Feels Anxious/Irritable Goose Flesh Skin: 0=Smooth Skin COWS Score: 10 [facility] Progress Note (SOAP) Subjective: sweats shakes interrupted sleep body aches Objective: 06/20/19 13:12 Vital Signs Temperature 98.2 F 06/20/19 09:16 Pulse Rate 84 06/20/19 09:16 Respiratory Rate 18 06/20/19 09:16 Blood Pressure 131/78 06/20/19 09:16 O2 Sat by Pulse Oximetry (%) Laboratory Tests 06/20/19 06/20/19 06/20/19 07:00 07:00 07:00 WBC 7.1 RBC 3.97 L Hgb 11.9 Hct 35.3 L MCV 88.9 MCH 29.9 MCHC 33.6 RDW 13.9 Plt Count 258 D MPV 7.4 L Sodium 142 Potassium 3.8 Chloride 108 H Carbon Dioxide 29 Anion Gap 5 L BUN 16.9 Creatinine 0.8 Est GFR (CKD-EPI)AfAm 119.88 Est GFR (CKD-EPI)NonAf 103.43 Random Glucose 94 Calcium 8.4 L Total Bilirubin 0.7 AST 9 L ALT 13 Alkaline Phosphatase 106 Total Protein 6.5 Albumin 3.0 L RPR Titer Nonreactive labs noted aaox3 ambulating no acute distress Assessment: 06/20/19 13:12 withdrawal sx Plan: continue detox increase fluids
[2019-06-20] MEDS ORDERED: ARIPiprazole 15 MG TABLET PO SCH (22:00)
[2019-06-20] MEDS ORDERED: QUEtiapine FUMARATE 100 MG TABLET (FP) PO SCH (22:00)
[2019-06-20] MEDS: THIAMINE HCL 100 MG TABLET (FP) PO SCH (22:32)
[2019-06-21] MEDS: LORazepam 1 MG TABLET PO SCH ×3 (05:51→17:55)
[2019-06-21] MEDS ORDERED: LORazepam 0.5 MG TABLET ONE (09:14)
[2019-06-21] MEDS ORDERED: METHADONE HCL 10 MG TABLET (FOR DETOX USE ONLY) PO ONE (10:00)
[2019-06-21] MEDS: PRENATAL VITAMINS W/ FOLIC ACID TABLET (FP) PO SCH (10:22)
[2019-06-21] MEDS: NICOTINE 14 MG/24 HOURS TOPICAL PATCH TD SCH (10:22)
--- NOTE | 2019-06-21 10:34 | PN ---
S CIWA - CIWA Score Nausea/Vomitin-No Nausea/No Vomiting Muscle Tremors: None Anxiety: 3 Agitation: 2 Paroxysmal Sweats: 3 Orientation: 0-Oriented Tacttile Disturbances: 0-None Auditory Disturbances: 0-None Visual Disturbances: 0-None Headache: 2-Mild CIWA-Ar Total Score: 10 BHS COWS - Scale Resting Pulse: 0= [place] 80 or Below Sweatin= Beads of Sweat on Face Restless Observation: 1= Difficult to Sit Still Pupil Size: 0= Normal to Room Light Bone or Joint Aches: 2= Severe Diffuse Aches Runny Nose/ Eye Tearin= None GI Upset > 30mins: 0= None Tremor Observation of Outstretched Hands: 2= Slight Tremor Visible Yawning Observation: 1= 1-2x During Session Anxiety or Irritability: 2=Irritable/Anxious Goose Flesh Skin: 0=Smooth Skin COWS Score: 11 S Progress Note (SOAP) Subjective: c/o sweats, headache, muscle aches, and anxiety. Objective: 06/21/19 10:33 Vital Signs 06/21/19 06/21/19 06/21/19 03:30 06:30 09:40 Temperature 97.7 F 98.2 F Pulse Rate 70 66 66 Respiratory 18 18 18 Rate Blood Pressure 135/63 130/81 Lab Results WBC 7.1 K/mm3 (4.0-10.0) 06/20/19 07:00 RBC 3.97 M/mm3 (4.00-5.60) L 06/20/19 07:00 Hgb 11.9 GM/dL (11.7-16.9) 06/20/19 07:00 Hct 35.3 % (35.4-49) L 06/20/19 07:00 MCV 88.9 fl (80-96) 06/20/19 07:00 MCHC 33.6 g/dl (32.0-35.9) 06/20/19 07:00 RDW 13.9 % (11.9-15.9) 06/20/19 07:00 Plt Count 258 K/MM3 (134-434) D 06/20/19 07:00 Sodium 142 mmol/L (136-145) 06/20/19 07:00 Potassium 3.8 mmol/L (3.5-5.1) 06/20/19 07:00 Chloride 108 mmol/L (98-107) H 06/20/19 07:00 Carbon Dioxide 29 mmol/L (21-32) 06/20/19 07:00 Anion Gap 5 MMOL/L (8-16) L 06/20/19 07:00 BUN 16.9 mg/dL (7-18) 06/20/19 07:00 Creatinine 0.8 mg/dL (0.55-1.3) 06/20/19 07:00 Random Glucose 94 mg/dL (74-106) 06/20/19 07:00 Calcium 8.4 mg/dL (8.5-10.1) L 06/20/19 07:00 Labs pending. Assessment: 06/21/19 10:33 AOX3, in no acute distress. Full ROM, ambulating in the unit. Withdrawal symptoms. Plan: continue detox.
[2019-06-21] MEDS: CLINDAMYCIN PHOSPHATE 1% TOPICAL GEL 30 GM TUBE TP SCH (15:32)
[2019-06-21 17:21] VITALS: BP 176/100; PULSE 81; TEMP 98.2
--- NOTE | 2019-06-21 18:38 | PN ---
[facility] Progress Note Note: patient did not want to complete treatment,all attempts to convince patient to stay with no avail,did not want to wait, signed release ama
--- NOTE | 2019-06-21 18:42 | DS ---
[facility] Detox Discharge Summary Admission Date: 06/19/19 Discharge Date: 06/21/19 - History Present History: Alcohol Dependence, Cocaine Dependence, Opioid Dependence Additional Comments: patient signed release ama,did not want to wait,signed AMA Pertinent Past History: hypertension hepatitis c hiv ivdu - Physical Exam Results Vital Signs: Vital Signs Temperature 98.2 F 06/21/19 17:21 Pulse Rate 81 06/21/19 17:21 Respiratory Rate 18 06/21/19 17:21 Blood Pressure 176/100 H 06/21/19 17:21 O2 Sat by Pulse Oximetry (%) Pertinent Admission Physical Exam Findings: withdrawal signs and symptom Vital Signs Temperature 98.2 F 06/21/19 17:21 Pulse Rate 81 06/21/19 17:21 Respiratory Rate 18 06/21/19 17:21 Blood Pressure 176/100 H 06/21/19 17:21 O2 Sat by Pulse Oximetry (%) - Medication Discharge Medications: Ambulatory Orders Zolpidem Tartrate [Ambien -] 10 mg PO HS 03/19/15 Lamotrigine [Lamictal -] 150 mg PO DAILY 10/29/15 Aripiprazole [Abilify -] 15 mg PO DAILY 06/19/19 Bictegrav/Emtricit/Tenofov Ala [Biktarvy 50-200-25 mg Tablet] 1 each PO DAILY Quetiapine Fumarate [Seroquel] 100 mg PO BID 06/19/19 - AMA Did Patient Leave Against Medical Advice: Yes
[2019-06-22] MEDS ORDERED: LORazepam 0.5 MG TABLET PO PRN
[2019-06-22] MEDS ORDERED: LORazepam 0.5 MG TABLET PO SCH (05:00)
[2019-06-22] MEDS ORDERED: METHADONE HCL 5 MG TABLET (FOR DETOX USE ONLY) PO ONE (06:00)
[2019-06-23] MEDS ORDERED: LORazepam 0.5 MG TABLET PO ONE (05:00)
== END 2019-06-21 17:52 | disposition left against medical advice (07) | DRG 770 ==
LOC: YASAS 12:50 → EDBD 12:50 → Y6N 16:19
PROVIDERS: ADMIT Surgery; ATTEND Surgery
PROC: HZ2ZZZZ Detoxification Services for Substance Abuse Treatment (ICD-10-PCS; principal; 2019-06-19)
DX: F11.23 Opioid dependence with withdrawal (principal); F10.230 Alcohol dependence with withdrawal, uncomplicated; F14.20 Cocaine dependence, uncomplicated; F25.9 Schizoaffective disorder, unspecified; I10 Essential (primary) hypertension; Z21 Asymptomatic human immunodeficiency virus [HIV] infection status; B18.2 Chronic viral hepatitis C; K74.60 Unspecified cirrhosis of liver; E86.0 Dehydration
CPT/HCPCS: 36415; 71046-TC-FY; 80053; 85027; 86593

== ENCOUNTER 2024-01-31 14:55 | Emergency (ER) | payer OTHER ==
[2024-01-31 15:02] VITALS: BP 136/75; PULSE 91; RESP 19; TEMP 98.7; BMI 30.1
== END 2024-01-31 15:35 | disposition home or self-care (01) ==
LOC: JER 14:55
DX: F11.29 Opioid dependence with unspecified opioid-induced disorder (principal)
CPT/HCPCS: 99281-25

== ENCOUNTER 2024-01-31 16:36 | Inpatient (IN) | payer OTHER ==
[2024-01-31 18:15] VITALS: BMI 27.8
[2024-01-31] MEDS ORDERED: chlordiazePOXIDE HCL 25 MG CAPSULE PO PRN (22:50)
[2024-01-31] MEDS ORDERED: BISMUTH SUBSALICYLATE 524 MG/30 ML PO PRN (22:51)
[2024-01-31] MEDS ORDERED: IBUPROFEN 400 MG TABLET (FP) PO PRN (22:51)
[2024-01-31] MEDS ORDERED: MAG HYDROX/AL HYDROX/SIMETH 30 ML UNIT-DOSE CUP PO PRN (22:51)
[2024-01-31] MEDS ORDERED: LOPERAMIDE HCL 2 MG CAPSULE PO PRN (22:51)
[2024-01-31] MEDS ORDERED: ACETAMINOPHEN 325 MG TABLET (FP) PO PRN (22:51)
[2024-01-31] MEDS ORDERED: NICOTINE POLACRILEX 2 MG GUM BUC PRN (22:51)
[2024-01-31] MEDS ORDERED: POLYETHYLENE GLYCOL (HEALTHYLAX) 3350 17 GM PACKET PO PRN (22:51)
[2024-01-31] MEDS ORDERED: BENZOCAINE/MENTHOL (CHLORASEPTIC ) LOZENGE MM PRN (22:51)
[2024-01-31] MEDS ORDERED: NALOXONE HCL (KLOXXADO) 8 MG SPRAY NS PRN (22:51)
[2024-01-31] MEDS ORDERED: BENZONATATE 200 MG CAPSULE PO PRN (22:51)
[2024-01-31] MEDS ORDERED: NICOTINE POLACRILEX 2 MG LOZENGE BC PRN (22:51)
[2024-01-31] MEDS ORDERED: MAGNESIUM HYDROX 2400MG/30ML ORAL SUSPENSION 30 ML CUP PO PRN (22:51)
[2024-01-31] MEDS ORDERED: ONDANSETRON *ODT* 4 MG TABLET SL PRN (22:51)
[2024-01-31] MEDS ORDERED: NALOXONE HCL 0.4 MG/ML VIAL IM PRN (22:51)
[2024-01-31] MEDS ORDERED: P-EPHED 60MG/TRIPROLIDI 2.5MG TABLET PO PRN (22:51)
[2024-01-31] MEDS ORDERED: guaiFENesin 600 MG TABLET.ER (FP) PO PRN (22:51)
[2024-01-31] MEDS ORDERED: chlordiazePOXIDE HCL 25 MG CAPSULE ONE (23:47)
[2024-01-31] MEDS: chlordiazePOXIDE HCL 25 MG CAPSULE PO SCH (23:50)
[2024-01-31] MEDS: PRAZOSIN HCL 1 MG CAPSULE PO ONE (23:59)
[2024-02-01] MEDS: PRENATAL VITAMINS W/ FOLIC ACID TABLET (FP) PO SCH (10:25)
[2024-02-01] MEDS: methaDONE HCL 10 MG TABLET (FOR DETOX USE ONLY) PO ONE (10:57)
[2024-02-01] MEDS: METHOCARBAMOL 500 MG TABLET PO PRN (10:58)
[2024-02-01] MEDS: BICTEGRAV/EMTRICIT/TENOFOV (BIKTARVY) 50-200-25 MG TABLET PO SCH (10:58)
[2024-02-01] MEDS: propRANOLol HCL 10 MG TABLET PO SCH (11:06)
[2024-02-01 12:26] LABS: HEMATOCRIT 39.7 % (35.4-49); HEMOGLOBIN 12.9 GM/dL (11.7-16.9); MCH 30.4 pg (25.7-33.7); MCHC 32.6 g/dl (32.0-35.9); MEAN CELL VOLUME 93.2 fl (80-96); MEAN PLT VOLUME 7.9 fl (7.5-11.1); PLATELET COUNT 233 10^3/uL (134-434); RBC 4.26 M/mm3 (4.00-5.60); RDW 14.8 % (11.9-15.9); WHITE BLOOD COUNT 5.2 K/mm3 (4.0-10.0)
[2024-02-01 12:42] LABS: POTASSIUM 4.2 mmol/L (3.5-5.1)
[2024-02-01 12:47] LABS: ALBUMIN 3.1 g/dl (3.4-5.0); BLOOD UREA NITROGEN 21.3 mg/dL (7-18); CALCIUM 8.9 mg/dL (8.5-10.1)
[2024-02-01 12:51] LABS: BILIRUBIN,TOTAL 0.6 mg/dL (0.2-1)
[2024-02-01] MEDS: ABACAVIR/DOLUTEGRAVIR/LAMIVUDI (TRIUMEQ) TABLET PO SCH (16:11)
[2024-02-01] MEDS ORDERED: QUEtiapine FUMARATE 100 MG TABLET (FP) PO SCH (22:00)
[2024-02-01] MEDS ORDERED: PRAZOSIN HCL 1 MG CAPSULE PO SCH (22:00)
[2024-02-01] MEDS: MELATONIN 5 MG TABLETS PO SCH (22:21)
[2024-02-01] MEDS: THIAMINE HCL 100 MG TABLET (FP) PO SCH (22:21)
[2024-02-02] MEDS: chlordiazePOXIDE HCL 10 MG CAPSULE PO SCH (05:25)
[2024-02-02] MEDS: ABACAVIR/DOLUTEGRAVIR/LAMIVUDI (TRIUMEQ) TABLET PO SCH (10:05)
[2024-02-02] MEDS: DICYCLOMINE HCL 10 MG CAPSULE PO PRN (10:08)
[2024-02-02] MEDS: cloNIDine HCL 0.1 MG TABLET PO PRN (13:03)
[2024-02-02] MEDS: IBUPROFEN 600 MG TABLET (FP) PO PRN (22:27)
[2024-02-03] MEDS ORDERED: chlordiazePOXIDE HCL 10 MG CAPSULE PO PRN
[2024-02-03] MEDS: chlordiazePOXIDE HCL 10 MG CAPSULE PO SCH (05:19)
[2024-02-03] MEDS: methaDONE HCL 10 MG TABLET (FOR DETOX USE ONLY) PO ONE (10:13)
[2024-02-04] MEDS: chlordiazePOXIDE HCL 10 MG CAPSULE PO ONE (05:27)
[2024-02-04] MEDS: hydrOXYzine PAMOATE 25 MG CAPSULE (FP) PO PRN (05:27)
[2024-02-04 06:01] VITALS: PULSE 60
[2024-02-04 09:20] VITALS: BP 128/76; RESP 18; TEMP 97.7
== END 2024-02-04 10:21 | disposition home or self-care (01) | DRG 773 ==
LOC: YASAS 16:36 → Y3N 23:29
PROVIDERS: ADMIT Allergy & Immunology; ATTEND Surgery
PROC: HZ2ZZZZ Detoxification Services for Substance Abuse Treatment (ICD-10-PCS; principal; 2024-01-31)
DX: F11.23 Opioid dependence with withdrawal (principal); F10.230 Alcohol dependence with withdrawal, uncomplicated; F25.9 Schizoaffective disorder, unspecified; F31.9 Bipolar disorder, unspecified; F10.982 Alcohol use, unspecified with alcohol-induced sleep disorder; Z21 Asymptomatic human immunodeficiency virus [HIV] infection status; I10 Essential (primary) hypertension; M54.50 Low back pain, unspecified; G89.29 Other chronic pain; Z86.19 Personal history of other infectious and parasitic diseases; Z87.891 Personal history of nicotine dependence; Z87.828 Personal history of other (healed) physical injury and trauma
CPT/HCPCS: 36415; 80053; 80305; 85027; 86780; 87635; 87811; 93005; 93010

== ENCOUNTER 2024-05-13 11:43 | Inpatient (IN) | payer OTHER ==
[2024-05-13 12:42] VITALS: BMI 29.2
[2024-05-13] MEDS ORDERED: DICYCLOMINE HCL 10 MG CAPSULE PO PRN (13:38)
[2024-05-13] MEDS ORDERED: MAGNESIUM HYDROX 2400MG/30ML ORAL SUSPENSION 30 ML CUP PO PRN (13:38)
[2024-05-13] MEDS ORDERED: guaiFENesin 600 MG TABLET.ER (FP) PO PRN (13:38)
[2024-05-13] MEDS ORDERED: BENZONATATE 200 MG CAPSULE PO PRN (13:38)
[2024-05-13] MEDS ORDERED: MAG HYDROX/AL HYDROX/SIMETH 30 ML UNIT-DOSE CUP PO PRN (13:38)
[2024-05-13] MEDS ORDERED: NICOTINE POLACRILEX 2 MG GUM BUC PRN (13:38)
[2024-05-13] MEDS ORDERED: hydrOXYzine PAMOATE 25 MG CAPSULE (FP) PO PRN (13:38)
[2024-05-13] MEDS ORDERED: IBUPROFEN 400 MG TABLET (FP) PO PRN (13:38)
[2024-05-13] MEDS ORDERED: NICOTINE POLACRILEX 2 MG LOZENGE BC PRN (13:38)
[2024-05-13] MEDS ORDERED: BENZOCAINE/MENTHOL (CHLORASEPTIC ) LOZENGE MM PRN (13:38)
[2024-05-13] MEDS ORDERED: POLYETHYLENE GLYCOL (HEALTHYLAX) 3350 17 GM PACKET PO PRN (13:38)
[2024-05-13] MEDS ORDERED: cloNIDine HCL 0.1 MG TABLET PO PRN (13:38)
[2024-05-13] MEDS ORDERED: IBUPROFEN 600 MG TABLET (FP) PO PRN (13:38)
[2024-05-13] MEDS ORDERED: NALOXONE HCL 0.4 MG/ML VIAL IM PRN (13:38)
[2024-05-13] MEDS ORDERED: LOPERAMIDE HCL 2 MG CAPSULE PO PRN (13:38)
[2024-05-13] MEDS ORDERED: BISMUTH SUBSALICYLATE 524 MG/30 ML PO PRN (13:38)
[2024-05-13] MEDS ORDERED: ACETAMINOPHEN 325 MG TABLET (FP) PO PRN (13:38)
[2024-05-13] MEDS ORDERED: NALOXONE (NARCAN) HCL 4 MG/0.1 ML SPRAY NS PRN (13:38)
[2024-05-13] MEDS ORDERED: methaDONE HCL 10 MG TABLET (FOR DETOX USE ONLY) ONE (15:08)
[2024-05-13] MEDS: methaDONE HCL 10 MG TABLET (FOR DETOX USE ONLY) PO ONE (15:14)
[2024-05-13] MEDS ORDERED: amLODIPine BESYLATE 5 MG TABLET (FP) PO ONE (16:03)
[2024-05-13] MEDS: propRANOLol HCL 10 MG TABLET PO SCH (17:41)
[2024-05-13] MEDS: amLODIPine BESYLATE 5 MG TABLET (FP) PO ONE (17:41)
[2024-05-13] MEDS: diazePAM 5 MG TABLET PO SCH (17:42)
[2024-05-13] MEDS: QUEtiapine FUMARATE 50 MG TABLET PO SCH (22:19)
[2024-05-13] MEDS: THIAMINE 100 MG TABLET PO SCH (22:20)
[2024-05-13] MEDS: MELATONIN 5 MG TABLETS PO SCH (22:20)
[2024-05-13] MEDS: PRAZOSIN HCL 1 MG CAPSULE PO SCH (23:44)
[2024-05-14] MEDS: ABACAVIR/DOLUTEGRAVIR/LAMIVUDI (TRIUMEQ) TABLET PO SCH (07:11)
[2024-05-14] MEDS: NICOTINE 7 MG/24 HOURS TOPICAL PATCH TD SCH (09:56)
[2024-05-14] MEDS: PRENATAL VITAMINS W/ FOLIC ACID TABLET (FP) PO SCH (09:56)
[2024-05-14 11:45] LABS: CHLORIDE 105 mmol/L (98-107); POTASSIUM 3.8 mmol/L (3.5-5.1); SODIUM 140 mmol/L (136-145)
[2024-05-14 11:52] LABS: HEMATOCRIT 40.1 % (35.4-49); HEMOGLOBIN 13.4 GM/dL (11.7-16.9); MCH 31.8 pg (25.7-33.7); MCHC 33.5 g/dl (32.0-35.9); MEAN CELL VOLUME 94.9 fl (80-96); MEAN PLT VOLUME 7.5 fl (7.5-11.1); PLATELET COUNT 174 10^3/uL (134-434); RBC 4.23 M/mm3 (4.00-5.60); RDW 15.5 % (11.9-15.9); WHITE BLOOD COUNT 4.8 K/mm3 (4.0-10.0)
[2024-05-14 11:53] LABS: ALBUMIN 3.3 g/dl (3.4-5.0); BLOOD UREA NITROGEN 19.8 mg/dL (7-18); CREATININE 1.1 mg/dL (0.55-1.3); GLUCOSE,RANDOM 131 mg/dL (74-106)
[2024-05-14 11:55] LABS: BILIRUBIN,TOTAL 0.9 mg/dL (0.2-1); TOT PROT 6.9 g/dl (6.4-8.2)
[2024-05-14 11:56] LABS: ALK PHOS 100 U/L (45-117); SGOT/AST 15 U/L (15-37); SGPT/ALT 11 U/L (13-61)
[2024-05-14 11:58] LABS: ANION GAP 4 mmol/L (4-13); CO2 32 mmol/L (21-32)
[2024-05-15] MEDS: diazePAM 5 MG TABLET PO SCH (05:52)
[2024-05-15] MEDS: methaDONE HCL 10 MG TABLET (FOR DETOX USE ONLY) PO ONE (09:39)
[2024-05-15] MEDS: propRANOLol HCL 10 MG TABLET PO SCH (10:08)
[2024-05-15] MEDS: LACTULOSE 20 GM/30 ML UDC (FOR ORAL USE ONLY) PO SCH (10:08)
[2024-05-15] MEDS: diazePAM 5 MG TABLET PO PRN (10:11)
[2024-05-15] MEDS: ONDANSETRON *ODT* 4 MG TABLET SL PRN (11:17)
[2024-05-15] MEDS: METHOCARBAMOL 500 MG TABLET PO PRN (22:28)
[2024-05-15] MEDS: BENZOCAINE 28 GM HEMORRHOIDAL OINTMENT RC SCH (22:32)
[2024-05-16] MEDS: diazePAM 5 MG TABLET PO SCH (06:12)
[2024-05-16 13:21] VITALS: BP 143/78; PULSE 48; RESP 17; TEMP 97.8
[2024-05-17] MEDS ORDERED: diazePAM 5 MG TABLET PO ONE (06:00)
[2024-05-17] MEDS ORDERED: methaDONE HCL 10 MG TABLET (FOR DETOX USE ONLY) PO ONE (10:00)
== END 2024-05-16 14:02 | disposition home or self-care (01) | DRG 773 ==
LOC: YASAS 11:43 → Y6N 13:54
PROVIDERS: ADMIT Allergy & Immunology; ATTEND Surgery
PROC: HZ2ZZZZ Detoxification Services for Substance Abuse Treatment (ICD-10-PCS; principal; 2024-05-13)
DX: F11.23 Opioid dependence with withdrawal (principal); F10.230 Alcohol dependence with withdrawal, uncomplicated; F17.210 Nicotine dependence, cigarettes, uncomplicated; F25.0 Schizoaffective disorder, bipolar type; F19.282 Other psychoactive substance dependence with psychoactive substance-induced sleep disorder; F41.9 Anxiety disorder, unspecified; F43.10 Post-traumatic stress disorder, unspecified; Z21 Asymptomatic human immunodeficiency virus [HIV] infection status; I10 Essential (primary) hypertension; R79.89 Other specified abnormal findings of blood chemistry
CPT/HCPCS: 36415; 80053; 80305; 80307; 82140; 85027; 86780; 86803; 87522; 93005; 93010; Q0162

== ENCOUNTER 2024-12-05 16:23 | Inpatient (IN) | payer OTHER ==
[2024-12-05 16:56] VITALS: BMI 31.1
[2024-12-05] MEDS ORDERED: NALOXONE (NARCAN) HCL 4 MG/0.1 ML SPRAY NS PRN (17:16)
[2024-12-05] MEDS ORDERED: NICOTINE POLACRILEX 2 MG GUM BUC PRN (17:16)
[2024-12-05] MEDS ORDERED: BISMUTH SUBSALICYLATE 524 MG/30 ML PO PRN (17:16)
[2024-12-05] MEDS ORDERED: DICYCLOMINE HCL 10 MG CAPSULE PO PRN (17:16)
[2024-12-05] MEDS ORDERED: IBUPROFEN 600 MG TABLET (FP) PO PRN (17:16)
[2024-12-05] MEDS ORDERED: LOPERAMIDE HCL 2 MG CAPSULE PO PRN (17:16)
[2024-12-05] MEDS ORDERED: BENZOCAINE/MENTHOL (CHLORASEPTIC ) LOZENGE MM PRN (17:16)
[2024-12-05] MEDS ORDERED: IBUPROFEN 400 MG TABLET (FP) PO PRN (17:16)
[2024-12-05] MEDS ORDERED: guaiFENesin 600 MG TABLET.ER (FP) PO PRN (17:16)
[2024-12-05] MEDS ORDERED: ACETAMINOPHEN 325 MG TABLET (FP) PO PRN (17:16)
[2024-12-05] MEDS ORDERED: NICOTINE POLACRILEX 2 MG LOZENGE BC PRN (17:16)
[2024-12-05] MEDS ORDERED: POLYETHYLENE GLYCOL (HEALTHYLAX) 3350 17 GM PACKET PO PRN (17:16)
[2024-12-05] MEDS ORDERED: MAG HYDROX/AL HYDROX/SIMETH 30 ML UNIT-DOSE CUP PO PRN (17:16)
[2024-12-05] MEDS ORDERED: BENZONATATE 200 MG CAPSULE PO PRN (17:16)
[2024-12-05] MEDS: MELATONIN 5 MG TABLETS PO SCH (21:34)
[2024-12-05] MEDS: THIAMINE 100 MG TABLET PO SCH (21:34)
[2024-12-06] MEDS: ABACAVIR/DOLUTEGRAVIR/LAMIVUDI (TRIUMEQ) TABLET PO SCH (07:22)
[2024-12-06] MEDS ORDERED: diazePAM 5 MG TABLET PO PRN (07:48)
[2024-12-06 09:22] LABS: HEMATOCRIT 44.1 % (35.4-49); MCH 30.7 pg (25.7-33.7); MCHC 31.7 g/dl (32.0-35.9); MEAN CELL VOLUME 96.8 fl (80-96); MEAN PLT VOLUME 7.7 fl (7.5-11.1); PLATELET COUNT 212 10^3/uL (134-434); RBC 4.55 M/mm3 (4.00-5.60); RDW 13.1 % (11.9-15.9); WHITE BLOOD COUNT 4.9 K/mm3 (4.0-10.0)
[2024-12-06 09:23] LABS: CHLORIDE 105 mmol/L (98-107); POTASSIUM 4.4 mmol/L (3.5-5.1); SODIUM 138 mmol/L (136-145)
[2024-12-06 10:00] LABS: BLOOD UREA NITROGEN 13.8 mg/dL (7-18); CALCIUM 9.4 mg/dL (8.5-10.1); GLUCOSE,RANDOM 111 mg/dL (74-106)
[2024-12-06] MEDS ORDERED: amLODIPine BESYLATE 5 MG TABLET (FP) PO SCH (10:00)
[2024-12-06 10:01] LABS: ALBUMIN 3.4 g/dl (3.4-5.0); ALK PHOS 105 U/L (45-117); ANION GAP 5 mmol/L (4-13); CO2 29 mmol/L (21-32)
[2024-12-06 10:02] LABS: CREATININE 1.2 mg/dL (0.55-1.3); SGPT/ALT 13 U/L (13-61)
[2024-12-06 10:03] LABS: SGOT/AST 15 U/L (15-37)
[2024-12-06 10:04] LABS: BILIRUBIN,TOTAL 0.8 mg/dL (0.2-1); TOT PROT 7.3 g/dl (6.4-8.2)
[2024-12-06] MEDS: diazePAM 5 MG TABLET PO SCH (10:16)
[2024-12-06] MEDS: PRENATAL VITAMINS W/ FOLIC ACID TABLET (FP) PO SCH (10:16)
[2024-12-06] MEDS ORDERED: methaDONE HCL 10 MG TABLET (FOR DETOX USE ONLY) PO PRN (10:37)
[2024-12-06] MEDS ORDERED: cloNIDine HCL 0.1 MG TABLET PO PRN (10:37)
[2024-12-06] MEDS: methaDONE HCL 10 MG TABLET (FOR DETOX USE ONLY) PO ONE (10:56)
[2024-12-06] MEDS: QUEtiapine FUMARATE 50 MG TABLET PO SCH (22:20)
[2024-12-06] MEDS: METHOCARBAMOL 500 MG TABLET PO PRN (22:20)
[2024-12-06] MEDS: PRAZOSIN HCL 1 MG CAPSULE PO SCH (22:20)
[2024-12-07] MEDS: ONDANSETRON *ODT* 4 MG TABLET SL PRN (08:48)
[2024-12-08] MEDS: diazePAM 5 MG TABLET PO SCH (05:50)
[2024-12-08] MEDS: methaDONE HCL 10 MG TABLET (FOR DETOX USE ONLY) PO ONE (09:08)
[2024-12-08] MEDS: amLODIPine BESYLATE 10 MG TABLET (FP) PO SCH (13:22)
[2024-12-09] MEDS: diazePAM 5 MG TABLET PO SCH (05:39)
[2024-12-09] MEDS: hydrOXYzine PAMOATE 25 MG CAPSULE (FP) PO PRN (09:50)
[2024-12-09] MEDS: propRANOLol HCL 10 MG TABLET PO SCH (09:52)
[2024-12-10] MEDS: diazePAM 5 MG TABLET PO ONE (05:53)
[2024-12-10] MEDS: MAGNESIUM HYDROX 2400MG/30ML ORAL SUSPENSION 30 ML CUP PO PRN (09:07)
[2024-12-10] MEDS: methaDONE HCL 10 MG TABLET (FOR DETOX USE ONLY) PO ONE (09:08)
[2024-12-10] MEDS: LOSARTAN POTASSIUM 25 MG TABLET PO SCH (11:55)
[2024-12-10 20:54] VITALS: RESP 18
[2024-12-11 06:29] VITALS: BP 123/78; PULSE 67; TEMP 98.2
== END 2024-12-11 09:12 | disposition home or self-care (01) | DRG 773 ==
LOC: YASAS 16:23 → Y6N 17:46
PROVIDERS: ADMIT Allergy & Immunology; ATTEND Allergy & Immunology
PROC: HZ2ZZZZ Detoxification Services for Substance Abuse Treatment (ICD-10-PCS; principal; 2024-12-05)
DX: F11.23 Opioid dependence with withdrawal (principal); F10.230 Alcohol dependence with withdrawal, uncomplicated; F13.230 Sedative, hypnotic or anxiolytic dependence with withdrawal, uncomplicated; F14.20 Cocaine dependence, uncomplicated; F17.210 Nicotine dependence, cigarettes, uncomplicated; F25.1 Schizoaffective disorder, depressive type; F19.282 Other psychoactive substance dependence with psychoactive substance-induced sleep disorder; F19.280 Other psychoactive substance dependence with psychoactive substance-induced anxiety disorder; Z21 Asymptomatic human immunodeficiency virus [HIV] infection status; I10 Essential (primary) hypertension; B18.2 Chronic viral hepatitis C; Z99.89 Dependence on other enabling machines and devices
CPT/HCPCS: 36415; 80053; 80305; 80307; 85027; 86780; 93005; 93010; Q0162